=== PATIENT | male | born 1965 | race Caucasian/White ===

== ENCOUNTER 2020-01-01 03:29 | Emergency (ER) | payer MEDICAID ==
[~2020-01-01] VITALS: Ht 165.1 cm; Wt 61.2 kg
--- NOTE | 2020-01-01 03:44 | NUR ---
PT BIB [facility] C/O HEAD PAIN. PER EMS REPORT, PATIENT WAS FOUND ON STREET UNDER THE INFLUENCE OF ETOH AND ON THE GROUND. 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 PT IS AAOX3. UNABLE TO CLARIFY CURRENT YEAR. NO SOB. BREATHING EVENLY AND UNLABORED ON ROOM AIR. CONNECTED TO MONITOR.
[2020-01-01] MEDS ORDERED: TDAP [DIPH/PERTUSSIS/TET] 0.5 ML VIAL IM ONE ×2 (04:00→04:02)
--- NOTE | 2020-01-01 07:32 | NUR ---
RECEIVED REPORT FROM FELICITAS SOLOMON FOR [facility]. PATIENT IN BED ASLEEP, EASILY AROUSABLE BY VOICE, HOOKED TO MONITOR, KEPT SAFE AND COMFORTABLE. WILL CONTINUE TO MONITOR ACCORDINGLY.
[2020-01-01 09:02] VITALS: BP 121/62
--- NOTE | 2020-01-01 10:36 | NUR ---
WOUND CARE DONE. COVERED WOUND W DRY DRESSING.
--- NOTE | 2020-01-01 10:42 | NUR ---
PATIENT VERBALIZES "IM FEELING BETTER NOW". AMBULATED TO THE RESTROOM W STEADY GAIT.
--- NOTE | 2020-01-01 11:21 | NUR ---
Patient discharged to home in stable condition. Written and verbal after care instructions given. Patient verbalizes understanding of instruction.
== END 2020-01-01 11:21 | disposition home or self-care (01) ==
LOC: ER 03:40
DX: S00.81XA Abrasion of other part of head, initial encounter (principal); F10.129 Alcohol abuse with intoxication, unspecified; M25.512 Pain in left shoulder; Z86.19 Personal history of other infectious and parasitic diseases; Y90.9 Presence of alcohol in blood, level not specified; W18.39XA Other fall on same level, initial encounter; Y93.89 Activity, other specified; Y92.89 Other specified places as the place of occurrence of the external cause; Y99.8 Other external cause status
CPT/HCPCS: 70450 ×2; 73030; 90471; 90715; 99284; A6403